=== PATIENT | female | born 1960 | race Caucasian/White ===

== ENCOUNTER 2017-01-04 23:03 | Emergency (ER) | payer MEDICARE, OTHER ==
[~2017-01-04] VITALS: Ht 165.1 cm; Wt 113.4 kg
[~2017-01-04 23:03] MED LIST: ADVAIR 500-501 EACH INH; ARMOUR THYROID240 MG PO; CEPHALEXIN500 MG PO; CORTEF20 MG PO; ENALAPRIL MALEA20 MG PO; FARXIGA10 MG PO; GABAPENTIN300 MG PO; HUMALOG100 UNIT/2 SUB-Q; HYDROCODON-ACE1 EAC8 PO; HYDROCORTISONE5 MG PO; LANTUS SOL100 UNIT/1 SUB-Q; OMEPRAZOLE20 MG PO; ONGLYZA5 MG PO; POTASSIUM CHLO10 MEQ PO; PREDNISONE20 MG PO; PROAIR HFA8.5 GM INH; TOUJEO SOL300 UNIT/1 SQ; VAGIFEM10 MCG VAGINAL
== END 2017-01-05 01:34 | disposition home or self-care (01) ==
LOC: ED 23:03
DX: K52.9 Noninfective gastroenteritis and colitis, unspecified (principal)
CPT/HCPCS: 80053; 81001; 85025; 96361; 96374; 96375; 99283; J1720; J2405; J7030

== ENCOUNTER 2017-06-02 01:56 | Emergency (ER) | payer MEDICARE, OTHER ==
[~2017-06-02] VITALS: Ht 165.1 cm; Wt 117.9 kg
[2017-06-02] MEDS ORDERED: AMOXICILLIN500 MG PO (02:06)
[2017-06-02] MEDS ORDERED: SOLU-CORTE100 MG/21 IM (02:07)
[2017-06-02] MEDS ORDERED: CORTEF5 MG PO (02:20)
[2017-06-02] MEDS ORDERED: ONDANSETRON HCL8 MG PO (02:25)
[2017-06-02] MEDS ORDERED: ALBUTEROL2.5 MG/3 M INH (02:29)
[2017-06-02] MEDS ORDERED: PHENERGAN25 MG PR (04:01)
== END 2017-06-02 04:20 | disposition home or self-care (01) ==
LOC: ED 01:56
DX: E27.1 Primary adrenocortical insufficiency (principal); E11.9 Type 2 diabetes mellitus without complications; I10 Essential (primary) hypertension; J45.909 Unspecified asthma, uncomplicated; E66.9 Obesity, unspecified; Z79.899 Other long term (current) drug therapy; Z97.4 Presence of external hearing-aid
CPT/HCPCS: 80053; 81001; 83690; 85025; 96361; 96374; 96375; 99284; J1720; J2405; J2550; J7030

== ENCOUNTER 2017-09-02 00:07 | Observation (INO) | payer MEDICARE, OTHER ==
[~2017-09-02] VITALS: Ht 165.1 cm; Wt 121.3 kg
[~2017-09-02 00:07] MED LIST changes: +ALBUTEROL2.5 MG/3 M INH; +AMOXICILLIN500 MG PO; +CORTEF5 MG PO; +ONDANSETRON HCL8 MG PO; +PHENERGAN25 MG PR; +SOLU-CORTE100 MG/21 IM
--- NOTE | 2017-09-02 03:43 | NUR ---
PATIENT ADMITTED TO MEDICAL-SURGICAL FLOOR FROM ED VIA STRETCHER. AMBULATED TO BED WITH SBA, NOW RESTING IN BED, BREATHING IS EVEN AND UNLABORED. ASSESSMENT DONE.
--- NOTE | 2017-09-02 04:29 | NUR ---
PATIENT GIVEN 2O MG PO BENTYL FOR GI DISCOMFORT. DENIES FURTHER NEEDS. RESTING IN BED, BREATHING IS EVEN AND UNLABORED. CALL LIGHT WITHIN REACH.
--- NOTE | 2017-09-02 05:57 | NUR ---
ASSISTED PATIENT TO BATHROOM WITH SBA. NOW RESTING COMFORTABLY IN BED, BREATHING IS EVEN AND UNLABORED. DENIES FURTHER NEEDS. CALL LIGHT WITHIN REACH.
--- NOTE | 2017-09-02 07:20 | NUR ---
PATIENT LYING IN BED, UPDATED BOARD. NO NEEDS AT THIS TIME. CLAL LIGHT IN REACH
--- NOTE | 2017-09-02 08:02 | NUR ---
PATIENT RESTING IN BED AT THIS TIME AND SAYS SHE STILL HAS SOME ABD DISCOMFORT FROM THE VOMITING SHE DID EARLIER ON THE LAST SHIFT. PATIENT SAYS SHE IS READY TO GO HOME. SHE HAS A VERY GOOD KNOWLEDGE OF HER DX'S AND SAYS ONCE HER SYMPTOMS ARE GONE, WHICH THEY ARE SHE IS USUALLY DISCHARGED. PATIENT WANTS TO GO HOME AND BE IN HER OWN BED.
--- NOTE | 2017-09-02 09:46 | NUR ---
PATIENT SITTING UP IN CHAIR EATING BREAKFAST. VITALS AND I/OS DONE. CALL LIGHT IN REACH. FRESH ICE WATER GIVEN.
--- NOTE | 2017-09-02 12:15 | NUR ---
PATIENT TAKEN OUT AFTER BEING GIVEN DISCHARGE INSTRUCTIONS TO MEET HER . PATIENT DISCHARGED INTO HER HUSBANDS CARE.
== END 2017-09-02 12:15 | disposition home or self-care (01) ==
LOC: ED 00:07 → MS 00:09 → ED 03:03 → MS 03:03
PROVIDERS: ADMIT Internal Medicine
DX: E27.2 Addisonian crisis (principal); E86.0 Dehydration; J45.909 Unspecified asthma, uncomplicated; I10 Essential (primary) hypertension; E11.9 Type 2 diabetes mellitus without complications; E03.9 Hypothyroidism, unspecified; M35.9 Systemic involvement of connective tissue, unspecified; Z79.4 Long term (current) use of insulin; Z79.891 Long term (current) use of opiate analgesic; Z79.51 Long term (current) use of inhaled steroids; Z79.52 Long term (current) use of systemic steroids; Z79.899 Other long term (current) drug therapy
CPT/HCPCS: 36415; 51701; 71045; 80053; 81001; 83605; 83690; 85025; 96374; 96375; 99285; G0378; J1720; J2405; J3010; J7030

== ENCOUNTER 2018-09-19 00:54 | Emergency (ER) | payer MEDICARE, OTHER ==
[~2018-09-19] VITALS: Ht 165.1 cm; Wt 121.3 kg
[2018-09-19] MEDS ORDERED: GLIPIZIDE ER2.5 MG PO (01:09)
== END 2018-09-19 01:48 | disposition home or self-care (01) ==
LOC: ED 00:54
DX: S20.212A Contusion of left front wall of thorax, initial encounter (principal); E11.9 Type 2 diabetes mellitus without complications; J45.909 Unspecified asthma, uncomplicated; I10 Essential (primary) hypertension; E66.9 Obesity, unspecified; Z79.4 Long term (current) use of insulin; Z79.899 Other long term (current) drug therapy; W19.XXXA Unspecified fall, initial encounter
CPT/HCPCS: 71101; 99284-25

== ENCOUNTER 2019-12-24 10:50 | Emergency (ER) | payer MEDICARE, OTHER ==
[~2019-12-24] VITALS: Ht 165.1 cm; Wt 113.4 kg
[~2019-12-24 10:50] MED LIST changes: +GLIPIZIDE ER2.5 MG PO
[2019-12-24] MEDS ORDERED: REGLAN10 MG PO (11:56)
== END 2019-12-24 12:23 | disposition home or self-care (01) ==
LOC: ED 10:50
DX: H81.11 Benign paroxysmal vertigo, right ear (principal); E11.9 Type 2 diabetes mellitus without complications; I10 Essential (primary) hypertension; J45.909 Unspecified asthma, uncomplicated; Z79.899 Other long term (current) drug therapy; Z79.4 Long term (current) use of insulin; V89.2XXA Person injured in unspecified motor-vehicle accident, traffic, initial encounter
CPT/HCPCS: 96374; 99284-25; J2765

== ENCOUNTER 2021-11-09 11:09 | Emergency (ER) | payer MEDICARE, OTHER ==
[~2021-11-09] VITALS: Ht 165.1 cm; Wt 113.4 kg
[~2021-11-09 11:09] MED LIST changes: +REGLAN10 MG PO
== END 2021-11-09 15:00 | disposition home or self-care (01) ==
LOC: ED 11:09
DX: K75.81 Nonalcoholic steatohepatitis (NASH) (principal); R10.11 Right upper quadrant pain; E11.9 Type 2 diabetes mellitus without complications; J45.909 Unspecified asthma, uncomplicated; I10 Essential (primary) hypertension; Z88.8 Allergy status to other drugs, medicaments and biological substances; Z79.899 Other long term (current) drug therapy; Z79.4 Long term (current) use of insulin
CPT/HCPCS: 74177; 76705; 99284-25; Q9967